=== PATIENT | male | born 1945 | race American Indian/Alaskan Native ===

== ENCOUNTER 2016-12-21 11:50 | Day surgery (SDC) | payer MEDICARE ==
[~2016-12-21 11:50] MED LIST: ANCEF/STERILE WATER 2 GM/20 ML IV NR; GARAMYCIN/NS 80 MG/100 ML 100 ML IV SCH
[2016-12-21] MEDS ORDERED: SUBLIMAZE ONE ×2 (12:24→12:53)
[2016-12-21] MEDS ORDERED: DIPRIVAN 10 MG/ML IV ONE ×2 (12:24→12:52)
[2016-12-21] MEDS ORDERED: XYLOCAINE MPF 2% ONE ×2 (12:25→12:52)
[2016-12-21] MEDS ORDERED: PEPCID PO NR (12:45)
[2016-12-21] MEDS ORDERED: NACL BACTERIOSTATIC INFILTRATI ONE (12:46)
[2016-12-21] MEDS ORDERED: DILAUDID IV PRN (12:47)
[2016-12-21] MEDS ORDERED: NORMODYNE IV PRN (12:58)
[2016-12-21] MEDS ORDERED: PEPCID IV NR (13:00)
[2016-12-21] MEDS ORDERED: ZOFRAN IV PRN (13:00)
[2016-12-21] MEDS ORDERED: NACL 0.9% 1000 ML 1,000 ML IV SCH (13:00)
--- NOTE | 2016-12-21 13:01 | Anesthesia Day of Surgery ---
Anesthesia Day of Surgery - Day of Surgery Patient Examined: Yes Patient H&P Reviewed: Yes Patient is NPO: Yes Beta Blockers: Yes
--- NOTE | 2016-12-21 13:03 | Anesthesia Consultation ---
Anesthesia Consult and Med Hx Date of service: 12/21/16 - Airway Anesthetic Teeth Evaluation: Good ROM Head & Neck: Adequate Mental/Hyoid Distance: Adequate Mallampati Class: Class II Intubation Access Assessment: Probably Good - Pulmonary Exam CTA: Yes - Cardiac Exam Cardiac Exam: RRR - Pre-Operative Health Status ASA Pre-Surgery Classification: ASA3 Proposed Anesthetic Plan: General - Pulmonary Hx Smoking: Yes (FORMER, UNKNOWN TIME) Hx Asthma: No Hx Sleep Apnea: No - Cardiovascular System Hx Hypertension: Yes (EF 55-50%) Hx Coronary Artery Disease: Yes Hx Heart Attack/AMI: Yes (2012) Hx Peripheral Vascular Disease: Yes - Central Nervous System Hx Seizures: Yes (? 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
[2016-12-21] MEDS ORDERED: PROAIR IH ONE (13:42)
[2016-12-21] MEDS ORDERED: OMNIPAQUE 300 MG/50 ML (CATH LAB) IV ONE (13:50)
[2016-12-21] MEDS ORDERED: ROBINUL ONE (13:57)
--- NOTE | 2016-12-21 14:05 | Short Stay Summary ---
Short Stay Documentation Date of service: 12/21/16 - History H&P: obtained from office - Allergies and Medications Current Medications: Allergies No Known Allergies Allergy (Unverified 02/15/16 16:39) Home Medications Medication Instructions Recorded Confirmed Last Taken Type Aspirin 325 mg PO QDAY 02/15/16 12/21/16 12/19/16 History AtorvaSTATin 20 mg PO QDAY 02/15/16 12/21/16 12/20/16 History Carvedilol 6.25 mg PO QDAY 02/15/16 12/21/16 12/20/16 History Clonidine 1 mg PO QDAY 02/15/16 12/21/16 12/20/16 History hydrALAZINE [Apresoline] 50 mg PO QDAY 02/15/16 12/21/16 12/20/16 History Levofloxacin [Levaquin TAB] 500 mg PO QDAY #5 tablet 02/17/16 12/21/16 12/20/16 Rx Active Medications Cefazolin Sodium (Ancef/Sterile Water 2 Gm/20 Ml) 2 gm IV PREOP NR Stop: 12/21/16 23:59 Famotidine (Pepcid) 20 mg IV PREOP NR Stop: 12/21/16 23:59 Last Admin: 12/21/16 13:07 Dose: 20 mg Hydromorphone HCl (Dilaudid) 0.25 mg IV Q10MIN PRN PRN Reason: Pain, Moderate (4-6) Stop: 12/21/16 23:59 Gentamicin Sulfate/Sodium Chloride (Garamycin/Ns 80 Mg/100 Ml) 100 mls @ 200 mls/hr IV PREOP GUSTAVO Stop: 12/21/16 23:59 Sodium Chloride (Nacl 0.9% 1000 Ml) 1,000 mls @ 75 mls/hr IV DIRECT GUSTAVO Last Admin: 12/21/16 13:07 Dose: 75 mls/hr Labetalol HCl (Normodyne) 10 mg IV ONCE PRN PRN Reason: Hypertension Last Admin: 12/21/16 13:09 Dose: 10 mg - Brief post op/procedure progress note Date of procedure: 12/21/16 Pre-op diagnosis: bph, elevated psa 47 Post-op diagnosis: same Procedure: cysto, pus 25cc, bx x 12 Anesthesia: GETA Surgeon: MONROE GRANADO Estimated blood loss: minimal Pathology: list (prostate cores x 12) Specimen disposition: to lab Condition: stable - Hospital course Hospital course: deejay salazar, post op info in chart - Disposition Condition at discharge: Stable Disposition: DC- TO HOME OR SELFCARE Short Stay Discharge Plan Follow up with: PRIMARY CARE, [Primary Care Provider] - 7 Days
--- NOTE | 2016-12-21 14:18 | Post Anesthesia Evaluation ---
- Post Anesthesia Evaluation Patient Participated: Yes Airway Patent: Yes Stable Respiratory Function: Yes Nausea/Vomiting: No Temp > 96.8F: Yes Pain Manageable: Yes Adequeate Hydration: Yes Anesthesia Complications: No Block Receding Appropriately: Not Applicable Patient on Ventilator: No
[2016-12-21] MEDS ORDERED: APRESOLINE IV ONE ×2 (16:00)
--- NOTE | 2016-12-21 16:29 | Fluoroscopy Report ---
RETROGRADE PYELOGRAM: There is adequate filling of the ureters and intrarenal collecting systems with no filling defects or anatomic abnormalities identified.
[2016-12-21 18:12] VITALS: BP 147/68
--- NOTE | 2016-12-22 06:37 | Operative Report ---
PREOPERATIVE DIAGNOSES: Elevated PSA 47, benign prostatic hypertrophy. POSTOPERATIVE DIAGNOSES: Elevated PSA 47, benign prostatic hypertrophy. PROCEDURE: Cystoscopy, bilateral retrograde pyelograms, transrectal ultrasound and biopsy of prostate (25-cc prostate). SURGEON: Pio Sheridan MD ANESTHESIA: General. ANESTHESIOLOGIST: Dr. Victor. ESTIMATED BLOOD LOSS: Minimal. FLUIDS: Crystalloid. COMPLICATIONS: No complications. INDICATIONS: This patient is a 71-year-old gentleman who is mentally challenged, presents with his sister who is his primary caregiver. He had an elevated PSA of 47. Discussed options. They agreed to proceed with surgical intervention. DESCRIPTION OF PROCEDURE: The patient was taken to the operative suite, placed in a supine position. After adequate general anesthesia, placed in a dorsal lithotomy position, prepped and draped in a sterile fashion. Pancystourethroscopy was performed with 22-Swedish Storz cystoscope. No urethral abnormalities. His prostate displayed moderate bilobar prostatic obstruction. No tumors or stones were noted in the bladder. Both ureteral orifices in normal position. He had some mild diffuse trabeculation. Bilateral retrograde pyelograms were obtained with an 8 Swedish Loving catheter and 8 mL of contrast. No filling defects or obstruction. Next, using a transrectal ultrasound and probe, measurements of the prostate in the sagittal and transverse planes revealed a 25 gram gland. No suspicious lesions could be appreciated. A total of 12 core biopsies were taken at the base, mid, and apex. Bladder was drained. The patient tolerated the procedure well and was extubated and taken to recovery room. He will go home on [facility] and [place] and follow up in the office. JOB# [id number] [facility]
--- NOTE | 2016-12-22 10:38 | Ultrasound Report ---
ULTRASOUND GUIDE INTRAOPERATIVE HISTORY: Elevated PSA, prostate biopsy. FINDINGS: Endorectal ultrasound guidance was provided by radiology during prostate biopsy by Dr. Sheridan. 2 ultrasound images were captured. Prostate volume measures 22.3 cc. IMPRESSION: Successful prostate biopsy under ultrasound guidance.
== END 2016-12-21 16:39 | disposition home or self-care (01) ==
LOC: OR 11:50
PROVIDERS: ATTEND Urology
DX: C61 Malignant neoplasm of prostate (principal); N41.1 Chronic prostatitis; N40.0 Benign prostatic hyperplasia without lower urinary tract symptoms; N32.89 Other specified disorders of bladder; I10 Essential (primary) hypertension; I25.2 Old myocardial infarction; Z79.899 Other long term (current) drug therapy; Z79.82 Long term (current) use of aspirin; Z87.891 Personal history of nicotine dependence; I25.10 Atherosclerotic heart disease of native coronary artery without angina pectoris; Z86.79 Personal history of other diseases of the circulatory system; Z86.73 Personal history of transient ischemic attack (TIA), and cerebral infarction without residual deficits
CPT/HCPCS: 55700; 74420; 76998; 88305; C1758; J0360; J0690; J1580; J2704; J3010; J7030; Q9967

== ENCOUNTER 2017-05-24 10:17 | Outpatient (CLI) | payer MEDICARE ==
--- NOTE | 2017-05-24 23:36 | Cat Scan Report ---
FINAL REPORT PROCEDURE: CT ABDOMEN PELVIS WO CON TECHNIQUE: Computerized axial tomography of the abdomen and pelvis was performed without intravenous contrast. This study is performed without intravascular contrast material and its sensitivity for abdominal and pelvic pathology, including neoplasms, inflammation, abscess, free fluid, thrombosis, arterial dissection and infarction, is reduced compared with a contrast enhanced study. HISTORY: MALIGNANT NEOPLASM OF PROSTATE COMPARISON: No prior studies are available for comparison. FINDINGS: Visualized lower thorax: No significant abnormality. Liver: Normal size and attenuation. Spleen: Normal size and attenuation. Gallbladder and biliary system: Normal. Pancreas: Normal. Adrenals: Both adrenal glands are slightly prominent size. A mass from the inferior left adrenal gland is mixed attenuated and measures 20 by 25 millimeters. An adenoma is possible.. Kidneys: Both kidneys have a normal size. No hydronephrosis. No renal stones or masses. GI tract: No obstruction. No ileus or enteritis. The cecum, appendix and colon are normal. Mild diverticular changes in the distal colon. No inflammatory process. Lymph nodes and mesentery: There are few scattered normal size lymph nodes throughout the mesentery.. Vasculature: Moderate atherosclerosis of the aorta and all branching vessels. Bladder: The urinary bladder shows bladder wall thickening globally.. Reproductive organs: The prostate gland is slightly enlarged. There are few calcifications in the lower aspect of the prostate gland.. Peritoneum: No free fluid. Musculoskeletal structures: Mild degenerative changes of the thoracic and lumbar spine. The bone mineralization appears to be appropriate for age. If further evaluation of the osseous structures is required bone scan may be appropriate.. Other: There is a small umbilical hernia containing fat.. IMPRESSION: There is no evidence of intestinal or urinary tract obstruction. No ileus or enteritis. Left inferior adrenal gland mass measures 20 x 25 millimeters. An adenoma is possible. The prostate gland is slightly enlarged. There are few small calcifications in the inferior aspect of prostate gland. Global thickening of the urinary bladder wall is identified. .
--- NOTE | 2017-05-26 09:32 | Nuclear Medicine Report ---
BONE SCAN: History: Malignant neoplasm of prostate gland. Comparison: No previous bone scan at this facility. Correlation is made with a noncontrast CT abdomen and pelvis performed the same day. After injection of isotope, gamma camera imaging of the bony system was done. There is normal soft tissue and renal uptake. Suspicious bilateral rib uptake is identified. There is subtle increased uptake in the left first rib, fourth rib, fifth rib and sixth rib. There is subtle increased uptake in right fourth, fifth and sixth ribs as well. CT performed the same day covers some of these lower ribs and demonstrates very subtle sclerosis. There is mild degenerative uptake in the lumbar spine but no convincing focal lesion. Normal pelvic and calvarial uptake. Motion does limit evaluation of the calvarium. 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 See above.
== END 2017-05-24 10:18 | disposition home or self-care (01) ==
LOC: NM 10:17
PROVIDERS: ATTEND Urology
DX: C61 Malignant neoplasm of prostate (principal); K57.30 Diverticulosis of large intestine without perforation or abscess without bleeding; E27.8 Other specified disorders of adrenal gland; I70.0 Atherosclerosis of aorta; M47.895 Other spondylosis, thoracolumbar region; K42.9 Umbilical hernia without obstruction or gangrene
CPT/HCPCS: 74176; 78306; A9503